=== PATIENT | male | born 2000 | race Asian ===

== ENCOUNTER 2021-04-21 12:24 | Emergency (ER) | payer BC ==
[2021-04-21 13:48] LABS: Bilirubin Negative (Negative); Blood, Urine Negative (Negative); Clarity Clear (Clear); Glucose, Urine (Dipstick) Normal (Negative); Ketone, Urine Trace mg/dL (Negative); Leukocyte Negative Leu/uL (Negative); Nitrite Negative (Negative); Protein, Urine (Dipstick) 10 mg/dL (Neg-Trace); Urobilinogen Normal mg/dL (Less than 2)
== END 2021-04-21 14:49 | disposition home or self-care (01) ==
LOC: ERS 12:24
DX: N45.1 Epididymitis (principal)
CPT/HCPCS: 76870; 81003; 87086; 93976